=== PATIENT | female | born 1960 | race Caucasian/White ===

== ENCOUNTER 2025-07-08 08:21 | Day surgery (SDC) | payer OTHER ==
[~2025-07-08] VITALS: Ht 154.9 cm; Wt 40.1 kg
[2025-07-08] VITALS (9 sets, daily range): BP systolic 103–180; BP diastolic 53–134
[~2025-07-08 08:21] MED LIST: Tranexamic Acid 1000 MG/10 ML 10ML Vial (SDV) TOP PRN
[2025-07-08] MEDS ORDERED: Dexamethasone Sod Phos 10 MG/ML 1ML VIAL ONE (08:24)
[2025-07-08] MEDS ORDERED: Rocuronium Bromide 10 MG/ML 5ML Injection IV ONE (08:24)
[2025-07-08] MEDS ORDERED: Ondansetron HCl 2 MG / ML 2ML Vial ONE (08:24)
[2025-07-08] MEDS ORDERED: FentaNYL Citrate 50 MCG/ML 2 ML Injection ONE (08:25)
[2025-07-08] MEDS ORDERED: Albuterol 2.5 MG/3 ML VIAL INH ONE (08:40)
[2025-07-08] MEDS ORDERED: FentaNYL Citrate 50 MCG/ML 2 ML Injection IV PRN (08:40)
[2025-07-08] MEDS ORDERED: Ondansetron HCl 2 MG / ML 2ML Vial IV PRN (08:40)
[2025-07-08] MEDS ORDERED: Albuterol 2.5 MG/3 ML VIAL INH PRN (08:40)
[2025-07-08] MEDS ORDERED: Ipratropium Bromide INH 0.02% 0.5 mg/2.5ML Vial INH ONE (08:45)
[2025-07-08] MEDS ORDERED: Metoclopramide HCl 5MG / ML 2ML Vial IV PRN (08:45)
[2025-07-08] MEDS ORDERED: EpiNEPhrine 1 MG/1 ML 1ML Vial ONE (08:53)
[2025-07-08] MEDS ORDERED: Midazolam HCl 1MG / ML 2ML Vial IV ONE (09:00)
--- NOTE | 2025-07-08 09:00 | NUR ---
AMBULATORY INTO [facility]. PT REPORTS ANXIETY AND SOB NOTED WITH EXERTION. LUNGS TIGHT WITH SCATTERED COARSE RHONCHI AND WZ. RR 22-28. SATS 99% ON RA. A&A NEB GIVEN PER DR. BERG. MOIST COUGH PRODUCTIVE OF MODERATE TO LARGE AMOUNT OF WHITE, FROTHY SECRETIONS. PT REPORTS 7/10 "LEFT SIDE" PAIN. HISTORY AND ALLERGIES REVIEWED. NPO STATUS CONFIRMED. PT SISTER JOANNE IS SUPPORT PERSON. JOANNE WILL CALL FOR MEDICAL TRANSPORT UPON DISCHARGE. PT HAS 2 BAGS OF BELONGINGS IN [facility]AG [facility].
[2025-07-08 09:40] LABS: BASOPHILS ABSOLUTE AUTO 0.02 K/mm3 (0.00-0.23); BASOPHILS PERCENT AUTO 0 % (0-2); EOSINOPHILS ABSOLUTE AUTO 0.10 K/mm3 (0.00-0.68); EOSINOPHILS PERCENT AUTO 1 % (0-6); Hematocrit 38.0 % (33.0-51.0); Hemoglobin 12.8 g/dL (11.5-16.0); IMMATURE GRAN ABSOLUTE AUTO 0.02 K/mm3 (0.00-0.10); IMMATURE GRAN PERCENT AUTO 0 % (0-1); LYMPHOCYTES ABSOLUTE AUTO 2.42 K/mm3 (0.84-5.20); LYMPHOCYTES PERCENT AUTO 30 % (21-46); MONOCYTES ABSOLUTE AUTO 0.54 K/mm3 (0.16-1.47); MONOCYTES PERCENT AUTO 7 % (4-13); Mean Corpuscular HGB Conc 33.7 g/dL (31.5-36.5); Mean Corpuscular Volume 88 fL (80-100); NEUTROPHILS ABSOLUTE AUTO 5.05 K/mm3 (1.96-9.15); NEUTROPHILS PERCENT AUTO 62 % (41-73); NRBC ABSOLUTE 0.00 K/mm3 (0.00-0.02); NRBC Auto 0.0 /100 WBC (0.0-0.2); Platelet Count 210 K/mm3 (150-400); RDW Coefficient Variation 13.2 % (11.7-14.2); RDW Standard Deviation 42.5 fL (35.1-46.3)
[2025-07-08 09:56] LABS: Prothrombin Time Results 11.7 Sec (9.7-11.5)
[2025-07-08] MEDS ORDERED: Sugammadex Sodium 200 MG/2ML SDV (100 MG/ML) ONE (10:18)
--- NOTE | 2025-07-08 10:54 | NUR ---
07/08/25 1054 Kat Roper REFER TO DR MANJIT BERG ANESTHESIA RECORDS.
[2025-07-08] MEDS ORDERED: Metoclopramide HCl 5MG / ML 2ML Vial ONE (13:12)
--- NOTE | 2025-07-08 14:10 | NUR ---
PATIENT UP TO BR TO VOID. GAIT STEADY. HAD PATIENT USE WALKER WITH STAND BY ASSIST. BIOX 92% RA. DR MARIEE AT BEDSIDE SPEAKING WITH PATIENT ABOUT RESULTS.
--- NOTE | 2025-07-08 14:11 | NUR ---
PATIENT COUGHTED UP QUARTER SIZE BRIGHT RED SPUTUM.
--- NOTE | 2025-07-08 14:16 | NUR ---
DR MARIEE CONFIRMS POST-PROCEDURE CXR NO CONCERNS.
--- NOTE | 2025-07-08 14:23 | NUR ---
Discharge instructions reviewed with patient. Patient verbalizes understanding. Copy given to patient to take home.
--- NOTE | 2025-07-08 14:25 | NUR ---
REPORT GIVEN TO BANDAR TIERNEY RN TO RESUME CARE.
--- NOTE | 2025-07-08 14:55 | NUR ---
Patient up to Ambulate independently. Gait steady. Discharge instructions reviewed with patient. Patient verbalizes understanding. Copy given to patient to take home WITH FAMILY BY OTHER RN. Patient States Post-Procedure ride home has been arranged. Discharged via wheelchair to private car for ride home. PT GAG REFLEX WNL,TOLERATED WATER THEN SNACK. PT REPORTS READY TO GO HOME. BOTH IV'S OUT WNL. FAMILY WITH PT.
== END 2025-07-08 14:55 | disposition home or self-care (01) ==
LOC: ORSCMMR 08:21 → ORD 09:30 → ORSCMMR 09:30
PROVIDERS: Student in an Organized Health Care Education/Training Program
PROC: 0BB88ZX Excision of Left Upper Lobe Bronchus, Via Natural or Artificial Opening Endoscopic, Diagnostic (ICD-10-PCS; principal; 2025-07-08 09:30)
PROC: 0B9G8ZX Drainage of Left Upper Lung Lobe, Via Natural or Artificial Opening Endoscopic, Diagnostic (ICD-10-PCS; principal; 2025-07-08 09:30)
DX: C34.12 Malignant neoplasm of upper lobe, left bronchus or lung (principal); C77.1 Secondary and unspecified malignant neoplasm of intrathoracic lymph nodes; J44.89 Other specified chronic obstructive pulmonary disease; F17.210 Nicotine dependence, cigarettes, uncomplicated; F17.290 Nicotine dependence, other tobacco product, uncomplicated; Z79.899 Other long term (current) drug therapy
CPT/HCPCS: 71045; 85025; 85610; 85730; 88108; 88173; 88305; J0169; J1100; J2250; J2405; J2704; J2765; J3010; J7120